=== PATIENT | female | born 1940 | race Caucasian/White ===

== ENCOUNTER 2018-02-04 15:53 | Emergency (ER) ==
[2018-02-04 16:04] VITALS: BP 122/69; TEMP 98.3; BMI 30.8
[2018-02-04] MEDS ORDERED: ASPIRIN CHEWABLE PO STA (16:22)
--- NOTE | 2018-02-04 16:43 | CT ---
EXAM: CT brain without contrast HISTORY: Syncope TECHNIQUE: Multi-slice transaxial helical with coronal and sagital reformated images COMPARISON: None FINDINGS: The midline structures are central. The ventricles are neither dilated displaced. Minimal low attenuation in the periventricular white matter is nonspecific but is likely related to chronic microvascular ischemic disease. No acute intraparenchymal or extraaxial hemorrhagic collections are detected. The calvarium is intact. The visible paranasal sinuses and mastoid air cells are clear. IMPRESSION: 1. No acute intracranial process. 2. Minimal chronic microvascular ischemic disease in the periventricular white matter
--- NOTE | 2018-02-04 16:45 | DI ---
EXAM: Chest two view. HISTORY: Chest pain COMPARISON: None. FINDINGS: Heart size is normal. There is mild aortic atherosclerotic calcification of the aorta The lungs are clear without localized pulmonary infiltrate or pneumonia. There is no pleural fluid. Mi nimal curvature thoracic spine convexity to the left lower thoracic level. There are small marginal osteophytes anterior lower thoracic spine. IMPRESSION: 1. Cardiac silhouette normal size 2. No acute cardiopulmonary disease is seen.
--- NOTE | 2018-02-04 17:20 | CT ---
EXAM: CT chest without contrast HISTORY: Chest pain TECHNIQUE: Multi-slice transaxial helical with coronal and sagittal reformed images CONTRAST: None COMPARISON: None FINDINGS: The ascending thoracic aorta is ectatic to 34.7 mm. Aortic arch and descending thoracic ao rta have normal caliber. No suspicious lymphadenopathy detected. The heart is mildly enlarged with left atrial dilatation. No pericardial or pleural effusions are detected. Minimal bilateral apical pleural thickening is noted. With small nodule in the right lower lobe is 6.4 mm on coronal image num [id number]. The solid abdominal organs are grossly normal their visualized portions of the upper abdomen. Multip le calculi are detected in the nondilated gallbladder lumen. The bones are free of suspicious osteolytic or osteoblastic lesions. IMPRESSION: 1. No acute cardiopulmonary disease. 2. Mild cardiomegaly with left atrial dilatation. 3. Ectasia of the ascending thoracic aorta to 34.7 mm. 4. 6.4 mm solid nodule in the right lower lobe. Please see followup comment below. 5. Cholelithiasis. Comment: [employer] Society Recommendations on Incidental Solid Pulmonary Nodule Follow-up: Low risk patient: (no history of smoking, cancer, or other known risk factors) < 6mm - no follow-up needed > 6-8mm - inital at 6-12 months, then 18-24 months if no change > 8mm - Consider CT, PET/CT, or biopsy at 3 months High risk patient: (history of smoking or other risk factors) < 6mm - optional CT at 12 months if suspicious morophology or upper lobe location > 6-8mm - initial CT at 6-12 months, then CT at 18-24 months > 8mm - same as low risk
--- NOTE | 2018-02-04 17:30 | ED.PDOC ---
General ED Provider: Dr. RADHA BARRON Chief Complaint: Syncope Stated Complaint: Patient was in park attending the graduation libertarian, when she was wanting to eat the cake, she passed out, and woke up, having some left shooulder pain. feeling fine now. says when it is hot she does this, but it was not hot today. Time Seen by Physician: 17:28 Mode of Arrival: Walk-In Information Source: Patient Primary Care Provider: KAILEE RAI Nursing and Triage Documentation Reviewed and Agree: Yes Reviewed sepsis parameters & appropriate labs ordered?: Yes System Inflammatory Response Syndrome: Not Applicable Sepsis Protocol: For patient's 13 years and over: Temp is 96.8 and below OR 101 and greater Pulse >90 BPM Resp >20/minute Acutely Altered Mental Status Are patient's symptoms suggestive of a new infection, such as: -Pneumonia -Skin, Soft Tissue -Endocarditis -UTI -Bone, Joint Infection -Implantable Device -Acute Abdominal Infection -Wound Infection -Meningitis -Blood Stream Catheter Infection -Unknown Neurological Complaint Exam - Syncope/Near Syncope Complaint/Exam Symptoms Are: Resolved Episodes Lasting: Seconds Number of Episodes: 1 Episodes Witnessed: Yes Loss of Consciousness: Yes Associated Head Trauma: No Activity at Onset: At rest Aggravating: None Alleviating: Reports: None Associated Signs and Symptoms: Reports: Pain (left shoulder pain). Denies: Decreased oral intake, Vomiting, Diarrhea, GI blood loss, Short of air, Chest pain, Palpitations, Diaphoresis, Lightheadedness, Dizziness, Weakness, AMS, Numbness, Headache, Seizure, Remote head trauma, Recent head trauma Related History: Similar episode Cardiac Risk Factors: Reports: Hypertension GI Bleed Risk Factors: Reports: None Dysrhythmia Risk Factors: Reports: None Related Surgical History: Reports: None JVD Present: No Carotid Bruit Present: No Rectal Heme Positive: No Nystagmus Present: No Gag Reflex Present: Yes Meningeal Signs Positive: No Focal Weakness: Present: None Focal Sensory Loss: Present: None Gait: Normal Romberg Test Positive: No Babinski Sign: Negative Right, Negative Left Heel to Toe Normal: No Mandy-Hallpike Test Positive: No Differential Diagnoses: Hypovolemia, Metabolic Reaction, Vasovagal Episode Quality Indicators for Cardiac Chest Pain: EKG in 10min. Review of Systems - Review Of Systems Constitutional: Reports: No symptoms, Malaise, Weakness Eyes: Reports: No symptoms Ears, Nose, Mouth, Throat: Reports: No symptoms Respiratory: Reports: No symptoms Cardiac: Reports: No symptoms GI: Reports: No symptoms : Reports: No symptoms Musculoskeletal: Reports: No symptoms Skin: Reports: No symptoms Neurological: Reports: No symptoms Endocrine: Reports: No symptoms Hematologic/Lymphatic: Reports: No symptoms All Other Systems: Reviewed and Negative Past Medical History - Past Medical History Previously Healthy: Yes Endocrine: Reports: Hypothyroid, Dyslipidemia Cardiovascular: Reports: Hypertension Respiratory: Reports: None Hematological: Reports: None Gastrointestinal: Reports: GERD Genitourinary: Reports: None Neuro/Psych: Reports: None Musculoskeletal: Reports: None Cancer: Reports: None Last Menstrual Period: hysterectomy - Surgical History General Surgical History: Reports: Hysterectomy, Appendectomy, Other (partial colectomy) - Family History Family History: Reports: None - Social History Smoking Status: Never smoker Hx Substance Use: No Alcohol Screening: None Physical Exam - Physical Exam Appearance: Well-appearing, No pain distress, Well-nourished Eyes: [place], EOMI, Conjunctiva clear ENT: Ears normal, Nose normal, Oropharynx normal Respiratory: Airway patent, Breath sounds clear, Breath sounds equal, Respirations nonlabored Cardiovascular: RRR, Pulses normal, No rub, No murmur GI/: Soft, Nontender, No masses, Bowel sounds normal, No Organomegaly Musculoskeletal: Normal strength (mid back left paraspinal tenderness, no rash) , ROM intact, No edema, No calf tenderness Skin: Warm, Dry, Normal color Neurological: Sensation intact, Motor intact, Reflexes intact, Cranial nerves intact, Alert, Oriented Psychiatric: Affect appropriate, Mood appropriate Re-Evaluation - Re-Evaluation Time of Re-Evaluation: 17:36 Status: Improved Critical Care Note - Critical Care Note Total Time (mins): 30 Course - Course Hematology/Chemistry: 02/04/18 16:38 02/04/18 16:38 Orders, Labs, Meds: Lab Review 02/04/18 02/04/18 02/04/18 16:38 16:38 16:38 WBC 8.72 RBC 4.24 Hgb 12.6 Hct 39.1 MCV 92.2 MCH 29.7 MCHC 32.2 RDW Coeff of Navin 12.8 Plt Count 232 Immature Gran % (Auto) 0.2 Neut % (Auto) 58.5 Lymph % (Auto) 27.2 [place] % (Auto) 10.7 H Eos % (Auto) 2.5 Baso % (Auto) 0.9 Immature Gran # (Auto) 0.0 Neut # (Auto) 5.1 Lymph # (Auto) 2.4 [place] # (Auto) 0.9 Eos # (Auto) 0.2 Baso # (Auto) 0.1 D-Dimer (Manual) 389.35 Sodium 141 Potassium 4.0 Chloride 105 Carbon Dioxide 24 Anion Gap 16.0 BUN 28 H Creatinine 1.92 H Estimated GFR (MDRD) 25.00 BUN/Creatinine Ratio 14.58 Glucose 111 Calcium 9.2 Total Bilirubin 0.6 AST 14 L ALT 9 L Alkaline Phosphatase 91 Total Creatine Kinase 58 Troponin I < 0.0100 Total Protein 6.9 Albumin 3.5 Globulin 3.4 Albumin/Globulin Ratio 1.03 Orders Category Date Time Status EKG-(ED ONLY) Stat CARDIO 02/04/18 16:21 Completed CBC W/ AUTO DIFF Stat LAB 02/04/18 16:38 Completed COMPREHENSIVE METABOLIC PANEL Stat LAB 02/04/18 16:38 Completed CREATINE KINASE Stat LAB 02/04/18 16:38 Completed D-DIMER Stat LAB 02/04/18 16:38 Completed TROPONIN I Stat LAB 02/04/18 16:38 Completed Aspirin [Aspirin Chewable] MEDS 02/04/18 16:22 Discontinued 324 mg PO ONCE STA CHEST, 2 VIEWS PA & LAT Stat RADS 02/04/18 16:[address] CHEST W/O CONTRAST Stat RADS 02/04/18 16:[address] HEAD W/O CONTRAST Stat RADS 02/04/18 16:21 Completed Medications Discontinued Medications Generic Name Dose Route Start Last Admin Trade Name Freq PRN Reason Stop Dose Admin Aspirin 324 mg 02/04/18 16:22 02/04/18 16:35 Aspirin Chewable PO 02/04/18 16:23 324 mg ONCE STA Administration Vital Signs: Temp Pulse Resp BP Pulse Ox 02/04/18 15:54 98.3 F 72 16 122/69 96 Departure - Departure Time of Disposition: 17:35 Disposition: HOME SELF-CARE Discharge Problem: Dehydration Instructions: Dehydration (ED) Condition: Stable Pt referred to PMD for follow-up: Yes IPMP verified?: No Additional Instructions: Increase Hydration ASA 81 PO DAILY KEEP F/U WITH PMD Allergies/Adverse Reactions: Allergies No Known Allergies Allergy (Unverified 02/04/18 16:04) Home Medications: Ambulatory Orders Amlodipine Besylate 5 mg PO DAILY 02/04/18 Aspirin [Aspir-Low] 81 mg PO DAILY 02/04/18 Atenolol/Chlorthalidone [Atenolol-Chlorthalidone 50-25] 1 each PO DAILY Atorvastatin Calcium 20 mg PO DAILY 02/04/18 Latanoprost [Xalatan] 1 drop OP BEDTIME 02/04/18 Levothyroxine Sodium 50 mcg PO DAILY 02/04/18 Losartan Potassium 100 mg PO DAILY 02/04/18 Pantoprazole Sodium 40 mg PO DAILY 02/04/18 Disposition Discussed With: Patient, Family
== END 2018-02-04 17:44 | disposition home or self-care (01) ==
LOC: ED 15:53
DX: E86.0 Dehydration (principal); R55 Syncope and collapse; M25.512 Pain in left shoulder; I10 Essential (primary) hypertension; E78.5 Hyperlipidemia, unspecified; E03.9 Hypothyroidism, unspecified; Z79.899 Other long term (current) drug therapy
CPT/HCPCS: 36415; 80053; 82550; 84484; 85025; 85379; 93005; 93010; 99283

== ENCOUNTER 2019-03-14 15:58 | Emergency (ER) ==
[2019-03-14 16:07] VITALS: BP 163/69; TEMP 98.7; BMI 32.3
--- NOTE | 2019-03-14 17:43 | CT ---
EXAM: CT scan brain without contrast HISTORY: Fall COMPARISON: None. FINDINGS: Contiguous axial image obtained from skull base to the convexities without contrast utiliz ing 5-mm collimation. Sagittal and coronal reconstructions were and reviewed.. The ventricles and C SF spaces are prominent compatible with age appropriate atrophy. There is periventricular hypodensit y noted compatible with chronic microvascular disease.. There are no acute intracranial findings. F rontal scalp hematoma with laceration is noted. The calvarium is intact. Atherosclerotic changes ar e seen involving cavernous internal carotid arteries. The visualized paranasal sinuses and mastoid a ir cells are clear. The calvarium is intact IMPRESSION: No acute intracranial findings. Frontal scalp laceration with hematoma.
--- NOTE | 2019-03-14 17:46 | CT ---
. EXAM: CT scan thoracic spine HISTORY: Fall COMPARISON: None. FINDINGS: Contiguous axial images obtained through the thoracic spine utilizing 3-mm collimation sag ittal and coronal reconstructions were and reviewed.. There is a remote central depression of the garcia perior plate 53. There is moderate generalized osteopenia. There is multilevel degenerative disc di sease with ventral spondylitic changes in the mid and lower thoracic spine. Vertebral bodies are nor mal in alignment. There is no acute fracture or dislocation. Facet arthropathy is seen within the l ower thoracic spine. IMPRESSION: No acute findings.
--- NOTE | 2019-03-14 17:46 | ED.PDOC ---
General ED Provider: Dr. JIM SELBY Chief Complaint: Fall Stated Complaint: fall head injury and laceration of the scalp . NO SYNCOPE OR L.O.C REPORTED NO NEURO DEFICITS ON ARRIVAL. ARRIVED A.O.X3 Time Seen by Physician: 16:00 (see photos . c color applied in the ED ) Mode of Arrival: Wheelchair Information Source: Patient, Family Exam Limitations: No limitations, Other (NO OTHER ISSUES OFFERED RELATED TO FALL) Primary Care Provider: KAILEE RAI Nursing and Triage Documentation Reviewed and Agree: Yes Does patient meet sepsis criteria?: No System Inflammatory Response Syndrome: Not Applicable Sepsis Protocol: For patient's 13 years and over: Temp is 96.8 and below OR 101 and greater Pulse >90 BPM Resp >20/minute Acutely Altered Mental Status Are patient's symptoms suggestive of a new infection, such as: -Pneumonia -Skin, Soft Tissue -Endocarditis -UTI -Bone, Joint Infection -Implantable Device -Acute Abdominal Infection -Wound Infection -Meningitis -Blood Stream Catheter Infection -Unknown Trauma/Injury Complaint Exam - Trauma Complaint/Exam Location of Pain or Injury: Reports: Head, Neck Mechanism of Injury: Reports: Fall Onset/Duration: TODAY P.T.A. Symptoms Are: Still present Timing of Treatment: Immediate Initial Severity: Mild (NECK PAIN PLACED ON C COLOR IN THE E.D.) Current Severity: Mild Character: Reports: Aching Aggravating: Reports: None Associated Signs and Symptoms: Reports: Bleeding, Swelling (SCALP) Related History: Denies: Alcohol abuse, Drug abuse, Alleged assault, Anticoagulants (ON ASPRIN) Penetrating Injury Risk Factors: Reports: None Related Surgical History: Reports: None Immobilization Removed Post Exam: No (BUT ONE WAS PLACED ) Glascow Coma Scale (see protocol): 15 Trauma Findings: Present: Neck tenderness, Neck spasm. Absent: [place] eyes, Hemotympanum, Nasal deformity, Dental tenderness, Dental injury, SubQ Air, Crepitus, Airway obstructed, Trachea displaced, Labored respirations, Decreased breath sounds, Muffled heart sounds, Weak pulses, Abdominal distention, Pelvic tenderness, Back malalignment, Limited ROM, Agitated, Uncooperative Differential Diagnoses: Contusions, Fracture, Hematoma, Laceration, Sprain, Strain Review of Systems - Review Of Systems Constitutional: Reports: No symptoms Eyes: Reports: No symptoms Ears, Nose, Mouth, Throat: Reports: No symptoms Respiratory: Reports: No symptoms Cardiac: Reports: No symptoms GI: Reports: No symptoms : Reports: No symptoms Musculoskeletal: Reports: Neck pain Skin: Reports: Other (LACERATION SCALP) Neurological: Reports: No symptoms Endocrine: Reports: No symptoms Hematologic/Lymphatic: Reports: No symptoms All Other Systems: Reviewed and Negative Past Medical History - Past Medical History Previously Healthy: Yes Endocrine: Reports: Hypothyroid, Dyslipidemia Cardiovascular: Reports: Hypertension Respiratory: Reports: None Hematological: Reports: None Gastrointestinal: Reports: GERD Genitourinary: Reports: None Neuro/Psych: Reports: None Musculoskeletal: Reports: None Cancer: Reports: None Last Menstrual Period: na - Surgical History General Surgical History: Reports: Hysterectomy, Appendectomy, Other (partial colectomy) - Family History Family History: Reports: None - Social History Smoking Status: Never smoker Hx Substance Use: No Alcohol Screening: None - Immunizations Tetanus Shot up to Date: No Physical Exam - Physical Exam Appearance: Well-appearing, No pain distress, Well-nourished Eyes: [place], EOMI, Conjunctiva clear ENT: Ears normal, Nose normal, Oropharynx normal Respiratory: Airway patent, Breath sounds clear, Breath sounds equal, Respirations nonlabored Cardiovascular: RRR, Pulses normal, No rub, No murmur GI/: Soft, Nontender, No masses, Bowel sounds normal, No Organomegaly Musculoskeletal: Normal strength, ROM intact, No edema, No calf tenderness Skin: Warm, Dry (LACERATION OF SCALP SEE PHOTOS ) Neurological: Sensation intact, Motor intact, Reflexes intact, Cranial nerves intact, Alert, Oriented Psychiatric: Affect appropriate, Mood appropriate Interpretation - Radiology Interpretation Radiology Interpretation By: Radiologist (NEGATIVE THORACIC SPINE) Radiology Results: No acute changes Exam Interpreted: CT Scan (BRAIN) Procedures - Laceration/Wound Repair No standard instances Wound Description: Linear Wound Length (cm): 7 CM Wound Width: 3CM Wound Depth: 3MM Wound Explored: Clean Wound Irrigated: Yes Wound Prep: Saline, Hibiclens Anesthesia: Lidocaine (PLAIN 1 ML) Wound Debrided: Minimal Undermining: Minimal Wound Margins: [place] border aligned Wound Repaired With: [place] Number of Miriam: 50 Layer Closure?: No Re-Evaluation - Re-Evaluation Time of Re-Evaluation: 17:00 (SEE PHOTOS) Status: Improved Vital Signs Stable: Yes Pain Level: 2/10 NO L.O.C. NO VOMITING NO ACUTE NEURO ISSUES Appearance: NAD Lungs: Clear Skin: Warm and Dry Neuro: Alert and Oriented X3 CV: RRR - Re-Evaluation Time of Re-Evaluation: 17:49 Status: Unchanged Vital Signs Stable: Yes Pain Level: 2/10 Appearance: NAD Skin: Warm and Dry Neuro: Alert and Oriented X3 CV: RRR Additional Comments: NEURO NONE FOCAL , MOVED ARMS AND LEGS SENSATION INTACT Physician Notification - Case Discussed Physician Notified: HUGO Harris Time of Notification: 18:51 (TRANSFER NOW) Critical Care Note - Critical Care Note Total Time (mins): 0 Course - Course Hematology/Chemistry: 03/14/19 18:10 03/14/19 18:10 Orders, Labs, Meds: Lab Review 03/14/19 03/14/19 03/14/19 18:10 18:10 18:10 WBC 11.33 H RBC 4.54 Hgb 13.8 Hct 42.0 MCV 92.5 MCH 30.4 MCHC 32.9 RDW Coeff of Navin 12.3 Plt Count 203 Immature Gran % (Auto) 0.4 Neut % (Auto) 73.0 Lymph % (Auto) 17.3 [place] % (Auto) 7.7 Eos % (Auto) 1.1 Baso % (Auto) 0.5 Immature Gran # (Auto) 0.0 Neut # (Auto) 8.3 H Lymph # (Auto) 2.0 [place] # (Auto) 0.9 Eos # (Auto) 0.1 Baso # (Auto) 0.1 PT 9.6 INR 0.96 APTT 24.5 Sodium 141.4 Potassium 4.04 Chloride 102.5 Carbon Dioxide 28.7 Anion Gap 14.24 BUN 14.7 Creatinine 1.42 H Estimated GFR (MDRD) 36.00 BUN/Creatinine Ratio 10.35 Glucose 112.6 H Calcium 9.11 Total Bilirubin 0.64 AST 26.7 ALT 14.6 Alkaline Phosphatase 102.9 Total Protein 7.20 Albumin 4.34 Globulin 2.86 Albumin/Globulin Ratio 1.51 Orders Category Date Time Status EKG-(ED ONLY) Stat CARDIO 03/14/19 18:03 Completed ED IV/MEDIPORT/POWERPORT .ONCE EMERGENCY 03/14/19 18:03 Active CBC W/ AUTO DIFF Stat LAB 03/14/19 18:10 Completed COMPREHENSIVE METABOLIC PANEL Stat LAB 03/14/19 18:10 Received PARTIAL THROMBOPLASTIN TIME Stat LAB 03/14/19 18:10 Received PT WITH INR Stat LAB 03/14/19 18:10 Received 0.9 % Sodium Chloride [Saline Flush] MEDS 03/14/19 18:03 Ordered 1 syr IVF PRN PRN Lidocaine HCl/Pf [Lidocaine HCl 1% Sdv] MEDS 03/14/19 18:26 Discontinued 5 ml .ROUTE .STK-MED ONE Lidocaine HCl/Pf [Lidocaine HCl 1% Sdv] MEDS 03/14/19 18:18 Stat 5 ml SUBCUT ONCE STA CHEST, 1V AP ONLY Stat RADS 03/14/19 18:[address] CERVICAL SPINE W/O CONTRAST Stat RADS 03/14/19 16:[address] HEAD W/O CONTRAST Stat RADS 03/14/19 16:[address] THORACIC SPINE W/O CONTRAST Stat RADS 03/14/19 16:14 Completed Medications Generic Name Dose Route Start Last Admin Trade Name Freq PRN Reason Stop Dose Admin Sodium Chloride 1 syr 03/14/19 18:03 03/14/19 18:37 Saline Flush IVF 1 syr PRN PRN Administration To flush IV Discontinued Medications Generic Name Dose Route Start Last Admin Trade Name Freq PRN Reason Stop Dose Admin Lidocaine HCl 5 ml 03/14/19 18:18 03/14/19 18:36 Lidocaine Hcl 1% Sdv SUBCUT 03/14/19 18:19 5 ml ONCE STA Administration Vital Signs: Temp Pulse Resp BP Pulse Ox 03/14/19 16:01 98.7 F 51 L 16 163/69 H 98 Departure - Departure Time of Disposition: 18:52 Disposition: TSF SHORT-TRM HOSP Discharge Problem: Head injury due to trauma Qualifiers: Encounter type: initial encounter Qualified Code(s): S09.90XA - Unspecified injury of head, initial encounter Laceration of scalp Qualifiers: Encounter type: initial encounter Qualified Code(s): S01.01XA - Laceration without foreign body of scalp, initial encounter Dens fracture Qualifiers: Encounter type: initial encounter Fracture type: closed Qualified Code(s): S12.100A - Unspecified displaced fracture of second cervical vertebra, initial encounter for closed fracture Instructions: Laceration (ED), Laceration (DC), Head Injury (ED) Condition: Good Pt referred to PMD for follow-up: Yes IPMP verified?: No Additional Instructions: Please call your Family Physician as soon as possible to schedule a follow-up appointment. Allergies/Adverse Reactions: Allergies No Known Allergies Allergy (Verified 03/14/19 16:16) Home Medications: Ambulatory Orders Amlodipine Besylate 5 mg PO DAILY 02/04/18 Aspirin [Aspir-Low] 81 mg PO DAILY 02/04/18 Atenolol/Chlorthalidone [Atenolol-Chlorthalidone 50-25] 1 each PO DAILY Atorvastatin Calcium 20 mg PO DAILY 02/04/18 Latanoprost [Xalatan] 1 drop OP BEDTIME 02/04/18 Levothyroxine Sodium 50 mcg PO DAILY 02/04/18 Losartan Potassium 100 mg PO DAILY 02/04/18 Pantoprazole Sodium 40 mg PO DAILY 02/04/18 Transfer Form Completed: Yes Disposition Discussed With: Patient, Family
--- NOTE | 2019-03-14 18:00 | CT ---
EXAM: CT cervical spine without contrast. TECHNIQUE: Axial CT of the cervical spine was performed without contrast with coronal and sagittal r econstructions. HISTORY: Trauma and neck pain COMPARISON: None FINDINGS: There is an oblique type II fracture of the dens which is slightly displaced posteriorly. No other fractures are identified. The anterior and posterior arches of C1 are intact. There is no acute bony effacement of the canal or the foramina. The dens is intact. The craniocervical junctio n is anatomically aligned. The visualized portion of the temporal bones is normal. The facets are properly aligned. There is no evidence for transverse or spinous process fracture. The lamina are intact. There is advanced degenerative change. There are no upper thoracic posterior rib fractures. There is no apical pneumothorax. There are no acute soft tissue abnormalities. The prevertebral soft tissues are normal thickness. Visualized int racranial contents show no acute abnormality. IMPRESSION: 1. Acute type II dens fracture as described. There is no bony effacement of the canal and no other fractures are identified 2. Advanced degenerative change. Results called to Dr. Palacios at 6:00 p.m.
[2019-03-14] MEDS ORDERED: LIDOCAINE HCL 1% SDV SUBCUT STA (18:18)
[2019-03-14] MEDS ORDERED: LIDOCAINE HCL 1% SDV ONE (18:26)
[2019-03-14] MEDS ORDERED: ROCEPHIN 1 GM in SODIUM CHLORIDE 50 ML IV STA (18:52)
--- NOTE | 2019-03-15 07:28 | DI ---
EXAM: CHEST FRONTAL VIEW HISTORY: Fall, C2 fracture. COMPARISON: 02/04/2018 FINDINGS: Heart size and mediastinum remain within normal limits. There is at least mild atherosc lerotic disease. No acute infiltrates are seen. No vascular congestion. There is no consolidation, visible pleural fluid or pneumothorax. Bones reveal no acute fracture. IMPRESSION: No acute cardiopulmonary process.
== END 2019-03-14 19:14 | disposition short-term general hospital (02) ==
LOC: ED 15:58
DX: S01.01XA Laceration without foreign body of scalp, initial encounter (principal); S12.100A Unspecified displaced fracture of second cervical vertebra, initial encounter for closed fracture; S09.90XA Unspecified injury of head, initial encounter; W19.XXXA Unspecified fall, initial encounter; I10 Essential (primary) hypertension; E03.9 Hypothyroidism, unspecified; E78.5 Hyperlipidemia, unspecified; Z79.899 Other long term (current) drug therapy
CPT/HCPCS: 36415; 80053; 85025; 85610; 85730; 93005; 93010; 96365; 99285

== ENCOUNTER 2019-03-14 19:16 | Outpatient (CLI) ==
[2019-03-14 16:07] VITALS: BMI 32.3
== END 2019-03-14 19:40 | disposition short-term general hospital (02) ==
LOC: AMBL 19:16
PROVIDERS: ATTEND Internal Medicine
DX: S12.100A Unspecified displaced fracture of second cervical vertebra, initial encounter for closed fracture (principal); S01.01XA Laceration without foreign body of scalp, initial encounter; W19.XXXA Unspecified fall, initial encounter